=== PATIENT | male | born 1935 | race Caucasian/White ===

== ENCOUNTER 2021-10-25 15:05 | Observation (INO) ==
--- NOTE | 2021-10-25 16:02 | DR.URIAD ---
HPI Time Seen Time Seen by Provider: 10/25/21 15:39 PCP Primary Care Physician: JOE SANCHEZ Complaint Chief Complaint:: PT AND HIS FAMILY STATES FOR THE PAST FEW WEEKS HE HAS BEEN HAVING CCC , AND WHEEZING , AND HE HAS A RASH/BLEEDING TO HIS GROIN AREA , AND HIS NOSE HAS BEEN BLEEDING ,BR Self Treatment fo Chief Complaint: CREAM AND INJECTION FROM PHARMACY ,BR COVID-19 Coronavirus risk:travel/contact w/high risk person: No Has patient experienced Coronavirus symptoms: Yes Coronavirus symptoms experienced: Coughing Source History Provided: Patient and Family Member Mode of Arrival Mode of Arrival: Wheelchair Timing Onset of Chief Complaint: 09/28/21 PMH PMH Past Medical History: Yes Past Medical History: Diabetes, Dyslipidemia, Hypertension and Hypothyroidism Past Surgical History: No Family History History of Family Medical Conditions: No Social History Does patient currently use any type of tobacco product: No Have you used tobacco products in the last 12 months: No Type of Tobacco Use: None Does any household member use tobacco: No Alcohol Use: None Lives With: Alone Lives Where: Home Travel Risk Coronavirus risk:travel/contact w/high risk person: No Has patient experienced Coronavirus symptoms: Yes Coronavirus symptoms experienced: Coughing Infectious screening In the last 2 months have you had wt loss of >10#?: NO Have you had fever, night sweats or hemotysis?: No Have you traveled outside the country in the last 6 months?: No Isolation: Standard ROS Review of Systems Constitutional: No Symptoms Reported and See HPI Eyes: No Symptoms Reported and See HPI ENTM: No Symptoms Reported and See HPI Respiratoy: No Symptoms Reported and See HPI Cardiovascular: No Symptoms Reported and See HPI Gastrointestinal/Abdominal: No Symptoms Reported and See HPI Genitourinary: No Symptoms Reported and See HPI Neurological: No Symptoms Reported and See HPI Musculoskeletal: No Symptoms Reported and See HPI Integumentary: No Symptoms Reported and See HPI Hematologic/Lymphatic: No Symptoms Reported and See HPI Endocrine: No Symptoms Reported and See HPI Psychiatric: No Symptoms Reported and See HPI All Other Systems: Reviewed and Negative PE Vital Signs Vitals: Temperature 98.7 F Pulse Rate 88 Respiratory Rate 20 Blood Pressure 127/60 O2 Sat by Pulse Oximetry 93 General Limitations: No Limitations General Appearance: Alert and In No Apparent Distress Head Head Exam: Normal Inspection Eyes Eye exam: Normal Appearance ENT ENT Exam: Normal Exam External Ear Exam: Normal External Inspection TM/Canal Exam: Bilateral: Normal Nose Exam: Normal Nose Exam Nasal Speculum Exam: Bilateral: Normal Mouth Exam: Normal Inspection Throat Exam: Normal Inspection Neck Neck Exam: Normal Inspection Chest Chest Inspection: Normal Inspection Respiratory Respiratory Exam: Normal Lung Sounds Bilat Respiratory Exam: Bilateral: Clear to Auscultation Cardiovascular Cardiovascular Exam: Regular Rate and Normal Rhythm Abdominal Exam Abdominal Exam: Normal Inspection, Normal Bowel Sounds and Soft Extremeties Extremities Exam: Normal Inspection Back Back Exam: Normal Inspection Neurologic Neurological Exam: Alert and Oriented X3 Psychiatric Psychiatric Exam: Normal Affect and Normal Mood Skin Skin Exam: Warm, Dry, Intact and Normal Color MDM Additional Information Additional Information Obtained From: Old Records and Family Differential Diagnosis Differential Diagnosis: Pneumonia (BRONCHITIS, ECORIATION BOTH GROINS, NOSE BLEED.) and URI COURSE Treatment Treatment: SEE ORDERS. ROR Labs Reviewed Laboratory Results Reviewed?: Yes Result Diagrams: 10/25/21 16:05 10/25/21 16:05 Laboratory: 10/25/21 16:19 Groin Wound Gram Stain - Final WBC 3.2 X10^3/uL (3.6-10.0) L 10/25/21 16:05 RBC 2.59 X10^6/uL (4.7-6.0) L 10/25/21 16:05 Hgb 9.8 g/dL (13.5-18.0) L 10/25/21 16:05 Hct 28.5 % (42.0-54.0) L 10/25/21 16:05 MCV 110.4 fL (80.0-100.0) H 10/25/21 16:05 MCH 38.1 pg (27.0-34.0) H 10/25/21 16:05 MCHC 34.5 g/dL (33.0-35.0) 10/25/21 16:05 RDW 18.4 % (11.6-16.5) H 10/25/21 16:05 Plt Count 12 X10^3/uL (150.0-450.0) L* 10/25/21 16:05 Plt Count Comment Decreased (ADEQUATE) 10/25/21 16:05 MPV 8.7 fL (7.4-11.0) 10/25/21 16:05 Neut % (Auto) 74.8 % (42.0-75.0) 10/25/21 16:05 Lymph % (Auto) 22.4 % (21.0-51.0) 10/25/21 16:05 [place] % (Auto) 0.3 % (0.0-13.0) 10/25/21 16:05 Eos % (Auto) 2.4 % (0.9-2.9) 10/25/21 16:05 Baso % (Auto) 0.1 % (0.2-1.0) L 10/25/21 16:05 Neut # (Auto) 2.4 x10^3/uL (2.2-4.8) 10/25/21 16:05 Lymph # (Auto) 0.7 X10^3/uL (1.3-2.9) L 10/25/21 16:05 [place] # (Auto) 0 x10^3/uL (0.3-0.8) L 10/25/21 16:05 Eos # (Auto) 0.1 x10^3/uL (0.0-0.2) 10/25/21 16:05 Baso # (Auto) 0.0 X10^3/uL (0.0-0.1) 10/25/21 16:05 Absolute Nucleated RBC 0.2 /100WBC 10/25/21 16:05 Plt Morphology Comment Normal (NORMAL) 10/25/21 16:05 RBC Morphology Abnormal (NORMAL) 10/25/21 16:05 Anisocytosis Slight A 10/25/21 16:05 Macrocytosis 2+ A 10/25/21 16:05 Target Cells Present 10/25/21 16:05 Sodium 130 mmol/L (136-145) L 10/25/21 16:05 Corrected Sodium 130 mmol/L (136-145) L 10/25/21 16:05 Potassium 4.7 mmol/L (3.5-5.1) 10/25/21 16:05 Chloride 97 mmol/L (98-107) L 10/25/21 16:05 Carbon Dioxide 22.7 mmol/L (21-32) 10/25/21 16:05 BUN 38 mg/dL (7-18) H 10/25/21 16:05 Creatinine 1.18 mg/dL (0.70-1.30) 10/25/21 16:05 Est GFR (MDRD) Af Amer > 60 (>60) 10/25/21 16:05 Est GFR (MDRD) Non-Af > 60 (>60) 10/25/21 16:05 Glucose 114 mg/dL (65-99) H 10/25/21 16:05 Calcium 8.0 mg/dL (8.5-10.1) L 10/25/21 16:05 Corrected Calcium 9.1 mg/dL (8.5-10.1) 10/25/21 16:05 Total Bilirubin 0.90 mg/dL (0.2-1.0) 10/25/21 16:05 AST 112 Units/L (15-37) H 10/25/21 16:05 ALT 14 Units/L (12-78) 10/25/21 16:05 Alkaline Phosphatase 34 Units/L (46-116) L 10/25/21 16:05 Creatine Kinase 127 Units/L (39-308) 10/25/21 16:05 CK-MB (CK-2) 1.0 ng/mL (0-4.0) 10/25/21 16:05 CK/CKMB % Calc 0.8 % (<4) 10/25/21 16:05 Troponin I < 0.02 ng/mL (0-1.5) 10/25/21 16:05 Total Protein 6.8 g/dL (6.4-8.2) 10/25/21 16:05 Albumin 2.6 g/dL (3.4-5.0) L 10/25/21 16:05 Globulin 4.2 g/dL (2.5-4.5) 10/25/21 16:05 Albumin/Globulin Ratio 0.6 Ratio (1.1-2.1) L 10/25/21 16:05 Specimen Type Random urine 10/25/21 16:19 Urine Color Nicole (YELLOW) 10/25/21 16:19 Urine Appearance Clear (CLEAR) 10/25/21 16:19 Urine pH 5.0 (5.0 - 8.0) 10/25/21 16:19 Ur Specific [place] 1.020 (1.000-1.030) 10/25/21 16:19 Urine Protein 2+ (NEGATIVE) 10/25/21 16:19 Urine Glucose (UA) Negative (NEGATIVE) 10/25/21 16:19 Urine Ketones 1+ (NEGATIVE) 10/25/21 16:19 Urine Occult Blood 1+ (NEGATIVE) 10/25/21 16:19 Urine Nitrite Negative (NEGATIVE) 10/25/21 16:19 Urine Bilirubin 1+ (NEGATIVE) 10/25/21 16:19 Urine Urobilinogen 2+ (NORMAL) 10/25/21 16:19 Ur Leukocyte Esterase 1+ (NEGATIVE) 10/25/21 16:19 Urine RBC 0-2 /HPF (0-3) 10/25/21 16:19 Urine WBC 3-5 /HPF (0-5) 10/25/21 16:19 Ur Squamous Epith Cells Rare /HPF (NEGATIVE) 10/25/21 16:19 Urine Bacteria Trace /HPF (NEGATIVE) 10/25/21 16:19 Hyaline Casts Few /LPF (NEGATIVE) 10/25/21 16:19 Urine Mucus Many /HPF (NEGATIVE) 10/25/21 16:19 Ur Culture Indicated? No/not indicated 10/25/21 16:19 SARS CoV-2 RNA Rapid KELSY Negative (NEGATIVE) 10/25/21 16:32 Blood Type A POSITIVE 10/25/21 16:05 Antibody Screen Negative 10/25/21 16:05 XRAY XRAY Interpreted by: Radiologist (REPORT NOTED AND DISCUSSED WITH PATIENT AND SON.) and Self Opioid Opioid Risk Tool Age (Efren box if 16-45): No History of Preadolescent Sexual Abuse: No Total: 0 Total Score Risk Category: Low Risk Copyright: Ramiro HINSON predicting aberrant behaviors Diagnosis Discharge Problem: Pneumonia, Thrombocytopenia, Bleeding, Excoriation of groin Instructions Forms: Precautions for COVID19 [facility] Social Distancing
[2021-10-25 16:13] LABS: BASOPHILS % (AUTO) 0.1 % (0.2-1.0); EOSINOPHILS # (AUTO) 0.1 x10^3/uL (0.0-0.2); HEMATOCRIT 28.5 % (42.0-54.0); LYMPHOCYTES # (AUTO) 0.7 X10^3/uL (1.3-2.9); MONOCYTES # (AUTO) 0 x10^3/uL (0.3-0.8); MONOCYTES % (AUTO) 0.3 % (0.0-13.0); NEUTROPHILS # (AUTO) 2.4 x10^3/uL (2.2-4.8); WHITE BLOOD COUNT 3.2 X10^3/uL (3.6-10.0)
--- NOTE | 2021-10-25 16:19 | RAD ---
HISTORYCOUGHSTUDYCHEST, 1 VIEWCOMPARISONNone availableTECHNIQUEChest radiographic imaging, AP portable projection, 1 imageFINDINGSNo cardiomegaly.Airspace disease throughout the left lung; most significant in the left lower lobe.No pleural effusion.No pneumothorax.No acute osseous abnormality.Surgical clips in the right axilla.IMPRESSIONAirspace disease throughout the left lung; most significant in the left lower lobe. Findings are concerning for pneumonia. Recommend follow-up imaging after treatment, in 6-8 weeks, to ensure resolution.Electronically signed by: Dom Saunders (Oct 25, 2021 16:17:51)
[2021-10-25 16:25] LABS: EOSINOPHILS % (AUTO) 2.4 % (0.9-2.9); HEMOGLOBIN 9.8 g/dL (13.5-18.0); LYMPHOCYTES % (AUTO) 22.4 % (21.0-51.0); MEAN CORPUSCULAR HEMOGLOBIN 38.1 pg (27.0-34.0); MEAN CORPUSCULAR HGB CONC 34.5 g/dL (33.0-35.0); MEAN CORPUSCULAR VOLUME 110.4 fL (80.0-100.0); MEAN PLATELET VOLUME 8.7 fL (7.4-11.0); NEUTROPHILS % (AUTO) 74.8 % (42.0-75.0); RED BLOOD COUNT 2.59 X10^6/uL (4.7-6.0); RED CELL DISTRIBUTION WIDTH 18.4 % (11.6-16.5)
[2021-10-25 16:27] LABS: ALANINE AMINOTRANSFERASE 14 Units/L (12-78); ALBUMIN 2.6 g/dL (3.4-5.0); ALKALINE PHOSPHATASE 34 Units/L (46-116); ASPARTATE AMINO TRANSFERASE 112 Units/L (15-37); BLOOD UREA NITROGEN 38 mg/dL (7-18); CARBON DIOXIDE 22.7 mmol/L (21-32); CHLORIDE 97 mmol/L (98-107); COR CA(FOR HYPOALB) 9.1 mg/dL (8.5-10.1); COR NA(FOR HYPERGLY) 130 mmol/L (136-145); CREATININE 1.18 mg/dL (0.70-1.30); SODIUM 130 mmol/L (136-145); TOTAL PROTEIN 6.8 g/dL (6.4-8.2); eGFR NON BLACK RACES > 60 (>60)
[2021-10-25] MEDS ORDERED: NYSTATIN OINT ONE (16:29)
[2021-10-25 16:34] LABS: CKMB % 0.8 % (<4); CREATINE KINASE 127 Units/L (39-308); TROPONIN I < 0.02 ng/mL (0-1.5)
[2021-10-25 16:39] LABS: PLATELET COUNT 12 X10^3/uL (150.0-450.0)
[2021-10-25 16:41] LABS: PLATELET MORPHOLOGY COMMENT NORMAL (NORMAL)
[2021-10-25 16:42] LABS: ANISOCYTOSIS SLIGHT; TARGET CELLS PRESENT
[2021-10-25 17:17] LABS: BILIRUBIN,URINE 1+ (NEGATIVE); BLOOD/HEMOGLOBIN,URINE 1+ (NEGATIVE); GLUCOSE, URINE NEGATIVE (NEGATIVE); KETONES,URINE 1+ (NEGATIVE); LEUKOCYTE ESTERASE ,URINE 1+ (NEGATIVE); NITRITES,URINE NEGATIVE (NEGATIVE); PROTEIN,URINE 2+ (NEGATIVE); UROBILINOGEN,URINE 2+ (NORMAL)
[2021-10-25 17:18] LABS: APPEARANCE,URINE CLEAR (CLEAR); COLOR,URINE AMBER (YELLOW)
[2021-10-25 17:27] LABS: BACTERIA,URINE TRACE /HPF (NEGATIVE); HYALINE CASTS, URINE FEW /LPF (NEGATIVE); MUCUS,URINE MANY /HPF (NEGATIVE); RBC,URINE 0-2 /HPF (0-3); SQUAMOUS EPITHELIAL CELL,UR RARE /HPF (NEGATIVE)
[2021-10-25] MEDS ORDERED: NS 1,000 ML IV 1,000 ML ONE (18:01)
[2021-10-25] MEDS: NS 1,000 ML IV 1,000 ML IV SCH (18:05)
[2021-10-25 19:43] LABS: WHITE BLOOD COUNT 2.6 X10^3/uL (3.6-10.0)
[2021-10-25 19:47] LABS: BASOPHILS % (AUTO) 0.1 % (0.2-1.0); EOSINOPHILS # (AUTO) 0.1 x10^3/uL (0.0-0.2); EOSINOPHILS % (AUTO) 2.4 % (0.9-2.9); HEMATOCRIT 26.7 % (42.0-54.0); HEMOGLOBIN 9.2 g/dL (13.5-18.0); LYMPHOCYTES # (AUTO) 0.6 X10^3/uL (1.3-2.9); LYMPHOCYTES % (AUTO) 21.3 % (21.0-51.0); MEAN CORPUSCULAR HEMOGLOBIN 37.7 pg (27.0-34.0); MEAN CORPUSCULAR HGB CONC 34.5 g/dL (33.0-35.0); MEAN CORPUSCULAR VOLUME 109.4 fL (80.0-100.0); MEAN PLATELET VOLUME 8.4 fL (7.4-11.0); MONOCYTES # (AUTO) 0 x10^3/uL (0.3-0.8); MONOCYTES % (AUTO) 0.5 % (0.0-13.0); NEUTROPHILS % (AUTO) 75.7 % (42.0-75.0); RED BLOOD COUNT 2.44 X10^6/uL (4.7-6.0); RED CELL DISTRIBUTION WIDTH 18.2 % (11.6-16.5)
[2021-10-25 19:53] LABS: ALANINE AMINOTRANSFERASE 19 Units/L (12-78); ALBUMIN 2.4 g/dL (3.4-5.0); ALKALINE PHOSPHATASE 31 Units/L (46-116); ASPARTATE AMINO TRANSFERASE 103 Units/L (15-37); BLOOD UREA NITROGEN 39 mg/dL (7-18); CALCIUM 7.6 mg/dL (8.5-10.1); CARBON DIOXIDE 22.8 mmol/L (21-32); CHLORIDE 98 mmol/L (98-107); COR CA(FOR HYPOALB) 8.9 mg/dL (8.5-10.1); SODIUM 129 mmol/L (136-145); TOTAL PROTEIN 6.3 g/dL (6.4-8.2); eGFR NON BLACK RACES > 60 (>60)
[2021-10-25 20:00] LABS: PLATELET COUNT 9 X10^3/uL (150.0-450.0)
[2021-10-25 20:13] LABS: ANISOCYTOSIS SLIGHT; PLATELET MORPHOLOGY COMMENT NORMAL (NORMAL)
[2021-10-25] MEDS: ROBITUSSIN DM PO SCH (21:40)
[2021-10-25] MEDS: LEVAQUIN PREMIX IV 750 MG 750 MG/150 ML BAG IV SCH (21:45)
[2021-10-26 02:03] VITALS: BMI 31.7
[2021-10-26 02:43] LABS: BASOPHILS % (AUTO) 1.6 % (0.2-1.0); EOSINOPHILS # (AUTO) 0.1 x10^3/uL (0.0-0.2); EOSINOPHILS % (AUTO) 4.1 % (0.9-2.9); HEMATOCRIT 23.9 % (42.0-54.0); HEMOGLOBIN 8.3 g/dL (13.5-18.0); LYMPHOCYTES # (AUTO) 0.5 X10^3/uL (1.3-2.9); LYMPHOCYTES % (AUTO) 24.4 % (21.0-51.0); MEAN CORPUSCULAR HEMOGLOBIN 37.8 pg (27.0-34.0); MEAN CORPUSCULAR HGB CONC 34.7 g/dL (33.0-35.0); MEAN CORPUSCULAR VOLUME 108.8 fL (80.0-100.0); MEAN PLATELET VOLUME 8.5 fL (7.4-11.0); MONOCYTES # (AUTO) 0 x10^3/uL (0.3-0.8); MONOCYTES % (AUTO) 0.9 % (0.0-13.0); NEUTROPHILS # (AUTO) 1.4 x10^3/uL (2.2-4.8); PLATELET COUNT 41 X10^3/uL (150.0-450.0); RED CELL DISTRIBUTION WIDTH 18.1 % (11.6-16.5); WHITE BLOOD COUNT 2.1 X10^3/uL (3.6-10.0)
[2021-10-26 03:07] LABS: PLATELET MORPHOLOGY COMMENT NORMAL (NORMAL)
[2021-10-26 03:08] LABS: ANISOCYTOSIS SLIGHT; TARGET CELLS FEW
[2021-10-26] MEDS: PROVENTIL NEB TX 0.083% 2.5MG/ 3ML NEB PRN ×2 (05:50→15:51)
[2021-10-26 06:28] LABS: BASOPHILS % (AUTO) 0.1 % (0.2-1.0); EOSINOPHILS # (AUTO) 0.1 x10^3/uL (0.0-0.2); EOSINOPHILS % (AUTO) 2.7 % (0.9-2.9); HEMATOCRIT 24.9 % (42.0-54.0); HEMOGLOBIN 8.6 g/dL (13.5-18.0); LYMPHOCYTES # (AUTO) 1.1 X10^3/uL (1.3-2.9); LYMPHOCYTES % (AUTO) 43.1 % (21.0-51.0); MEAN CORPUSCULAR HEMOGLOBIN 37.7 pg (27.0-34.0); MEAN CORPUSCULAR HGB CONC 34.6 g/dL (33.0-35.0); MEAN CORPUSCULAR VOLUME 109.1 fL (80.0-100.0); MEAN PLATELET VOLUME 8.7 fL (7.4-11.0); MONOCYTES # (AUTO) 0 x10^3/uL (0.3-0.8); MONOCYTES % (AUTO) 0.6 % (0.0-13.0); NEUTROPHILS # (AUTO) 1.3 x10^3/uL (2.2-4.8); NEUTROPHILS % (AUTO) 53.5 % (42.0-75.0); PLATELET COUNT 35 X10^3/uL (150.0-450.0); RED BLOOD COUNT 2.28 X10^6/uL (4.7-6.0); RED CELL DISTRIBUTION WIDTH 17.8 % (11.6-16.5); WHITE BLOOD COUNT 2.5 X10^3/uL (3.6-10.0)
[2021-10-26 06:52] LABS: ALANINE AMINOTRANSFERASE 28 Units/L (12-78); ALBUMIN 2.2 g/dL (3.4-5.0); ALKALINE PHOSPHATASE 29 Units/L (46-116); ASPARTATE AMINO TRANSFERASE 97 Units/L (15-37); BLOOD UREA NITROGEN 33 mg/dL (7-18); CALCIUM 7.7 mg/dL (8.5-10.1); CHLORIDE 101 mmol/L (98-107); COR CA(FOR HYPOALB) 9.1 mg/dL (8.5-10.1); CREATININE 0.97 mg/dL (0.70-1.30); SODIUM 132 mmol/L (136-145); TOTAL PROTEIN 5.9 g/dL (6.4-8.2); eGFR NON BLACK RACES > 60 (>60)
[2021-10-26 07:13] LABS: METAMYELOCYTES % 2
[2021-10-26 07:14] LABS: ANISOCYTOSIS SLIGHT; PLATELET MORPHOLOGY COMMENT NORMAL (NORMAL); TARGET CELLS FEW
[2021-10-26] MEDS: VSL#3 PO SCH (08:31)
[2021-10-26] MEDS: ROBITUSSIN DM PO SCH ×4 (08:31→21:20)
[2021-10-26] MEDS: LEVAQUIN PREMIX IV 750 MG 750 MG/150 ML BAG IV SCH (08:31)
[2021-10-26] MEDS ORDERED: SOLU-Medrol 125 MG VIAL IVP ONE (16:32)
[2021-10-26] MEDS ORDERED: SOLU-Medrol 125 MG VIAL ONE (16:38)
[2021-10-26] MEDS: PROVENTIL NEB TX 0.083% 2.5MG/ 3ML NEB SCH (18:00)
--- NOTE | 2021-10-26 18:46 | DR.H&P ---
H&P History & Physical for Day of: H&P Date: 10/25/21 Chief Complaint Chief Complaint: CCC and wheezing. Rash and bleeding in his groin area. Large number of nose bleeds. Allergies Allergies Allergy/AdvReac Type Severity Reaction Status Date / Time No Known Drug Allergies Allergy Verified 10/25/21 17:49 History of Present Illness History of Present Illness: This is an 86 yo wm who presented to ED with a 2 week history of CCC and wheezing. Bleeding from a rash in his groin and also having a large number of nose bleeds. Work-up in the ED found he had Pneumonia and he was profoundly thrombocytopenic with a platelet count of 12. He was also found to be hyponatremic with a sodium level of 130. He has a macrocytic anemia as well. Past Medical History Past Medical History: Angina, Diabetes, Dyslipidemia, Hypertension and Hypothyroidism Past Surgical History Surgical History: Ortho Surgery Family History Family Medical History: Diabetes Mellitus and Hypertension Social History Does patient currently use any type of tobacco product: No Have you used tobacco products in the last 12 months: No Type of Tobacco Use: None Does any household member use tobacco: No Alcohol Use: None Drug Use: None Medications Home Medications: No Known Drug Allergies Allergy (Verified 10/25/21 17:49) CONTINUE taking the following medications allopurinol 300 mg PO DAILY 10/25/21 [History] amlodipine 10 mg PO DAILY 10/25/21 [History] fenofibrate 160 mg PO DAILY 10/25/21 [History] folic acid 1 mg PO DAILY 10/25/21 [History] levothyroxine 100 mcg PO DAILY 10/25/21 [History] metformin 850 mg PO BID 10/25/21 [History] pantoprazole 40 mg PO DAILY 10/25/21 [History] spironolactone 25 mg PO BID 10/25/21 [History] Labs Result Diagrams: 10/26/21 06:13 10/26/21 06:13 Labs: 10/25/21 16:19 Groin Wound Gram Stain - Final 10/25/21 16:19 Groin Wound Culture - Preliminary 10/25/21 22:55 Sputum - Expectorated Sputum - Final Laboratory WBC 2.5 X10^3/uL (3.6-10.0) L 10/26/21 06:13 RBC 2.28 X10^6/uL (4.7-6.0) L 10/26/21 06:13 Hgb 8.6 g/dL (13.5-18.0) L 10/26/21 06:13 Hct 24.9 % (42.0-54.0) L 10/26/21 06:13 MCV 109.1 fL (80.0-100.0) H 10/26/21 06:13 MCH 37.7 pg (27.0-34.0) H 10/26/21 06:13 MCHC 34.6 g/dL (33.0-35.0) 10/26/21 06:13 RDW 17.8 % (11.6-16.5) H 10/26/21 06:13 Plt Count 35 X10^3/uL (150.0-450.0) L 10/26/21 06:13 Plt Count Comment Decreased (ADEQUATE) 10/26/21 06:13 MPV 8.7 fL (7.4-11.0) 10/26/21 06:13 Neut % (Auto) 53.5 % (42.0-75.0) 10/26/21 06:13 Lymph % (Auto) 43.1 % (21.0-51.0) 10/26/21 06:13 [place] % (Auto) 0.6 % (0.0-13.0) 10/26/21 06:13 Eos % (Auto) 2.7 % (0.9-2.9) 10/26/21 06:13 Baso % (Auto) 0.1 % (0.2-1.0) L 10/26/21 06:13 Neut # (Auto) 1.3 x10^3/uL (2.2-4.8) L 10/26/21 06:13 Lymph # (Auto) 1.1 X10^3/uL (1.3-2.9) L 10/26/21 06:13 [place] # (Auto) 0 x10^3/uL (0.3-0.8) L 10/26/21 06:13 Eos # (Auto) 0.1 x10^3/uL (0.0-0.2) 10/26/21 06:13 Baso # (Auto) 0.0 X10^3/uL (0.0-0.1) 10/26/21 06:13 Absolute Nucleated RBC 0.3 /100WBC 10/26/21 06:13 Total Counted 100 10/26/21 06:13 Neutrophils % (Manual) 48 % (39-76) 10/26/21 06:13 Lymphocytes % (Manual) 48 % (13-43) H 10/26/21 06:13 Monocytes % (Manual) 0 % (4-9) L 10/25/21 19:33 Eosinophils % (Manual) 2 % (0-6) 10/26/21 06:13 Metamyelocytes % 2 10/26/21 06:13 Plt Morphology Comment Normal (NORMAL) 10/26/21 06:13 RBC Morphology Abnormal (NORMAL) 10/26/21 06:13 Anisocytosis Slight A 10/26/21 06:13 Macrocytosis 1+ A 10/26/21 06:13 Target Cells Few 10/26/21 06:13 PT 13.9 SECONDS (11.8-14.3) 10/26/21 06:13 INR Target Range - 10/26/21 06:13 INR 1.12 (0.8-1.3) 10/26/21 06:13 APTT 36.7 SECONDS (22.9-36.5) H 10/26/21 06:13 PTT Comment - 10/26/21 06:13 Sodium 132 mmol/L (136-145) L 10/26/21 06:13 Corrected Sodium TNP 10/26/21 06:13 Potassium 4.0 mmol/L (3.5-5.1) 10/26/21 06:13 Chloride 101 mmol/L (98-107) 10/26/21 06:13 Carbon Dioxide 21.0 mmol/L (21-32) 10/26/21 06:13 BUN 33 mg/dL (7-18) H 10/26/21 06:13 Creatinine 0.97 mg/dL (0.70-1.30) 10/26/21 06:13 Est GFR (MDRD) Af Amer > 60 (>60) 10/26/21 06:13 Est GFR (MDRD) Non-Af > 60 (>60) 10/26/21 06:13 Glucose 96 mg/dL (65-99) 10/26/21 06:13 POC Glucose (mg/dL) 97 mg/dL (65-99) 10/26/21 16:14 Calcium 7.7 mg/dL (8.5-10.1) L 10/26/21 06:13 Corrected Calcium 9.1 mg/dL (8.5-10.1) 10/26/21 06:13 Magnesium 2.0 mg/dL (1.7-2.9) 10/26/21 06:13 Total Bilirubin 0.90 mg/dL (0.2-1.0) 10/26/21 06:13 AST 97 Units/L (15-37) H 10/26/21 06:13 ALT 28 Units/L (12-78) 10/26/21 06:13 Alkaline Phosphatase 29 Units/L (46-116) L 10/26/21 06:13 Creatine Kinase 127 Units/L (39-308) 10/25/21 16:05 CK-MB (CK-2) 1.0 ng/mL (0-4.0) 10/25/21 16:05 CK/CKMB % Calc 0.8 % (<4) 10/25/21 16:05 Troponin I < 0.02 ng/mL (0-1.5) 10/25/21 16:05 Total Protein 5.9 g/dL (6.4-8.2) L 10/26/21 06:13 Albumin 2.2 g/dL (3.4-5.0) L 10/26/21 06:13 Globulin 3.7 g/dL (2.5-4.5) 10/26/21 06:13 Albumin/Globulin Ratio 0.6 Ratio (1.1-2.1) L 10/26/21 06:13 Specimen Type Random urine 10/25/21 16:19 Urine Color Nicole (YELLOW) 10/25/21 16:19 Urine Appearance Clear (CLEAR) 10/25/21 16:19 Urine pH 5.0 (5.0 - 8.0) 10/25/21 16:19 Ur Specific [place] 1.020 (1.000-1.030) 10/25/21 16:19 Urine Protein 2+ (NEGATIVE) 10/25/21 16:19 Urine Glucose (UA) Negative (NEGATIVE) 10/25/21 16:19 Urine Ketones 1+ (NEGATIVE) 10/25/21 16:19 Urine Occult Blood 1+ (NEGATIVE) 10/25/21 16:19 Urine Nitrite Negative (NEGATIVE) 10/25/21 16:19 Urine Bilirubin 1+ (NEGATIVE) 10/25/21 16:19 Urine Urobilinogen 2+ (NORMAL) 10/25/21 16:19 Ur Leukocyte Esterase 1+ (NEGATIVE) 10/25/21 16:19 Urine RBC 0-2 /HPF (0-3) 10/25/21 16:19 Urine WBC 3-5 /HPF (0-5) 10/25/21 16:19 Ur Squamous Epith Cells Rare /HPF (NEGATIVE) 10/25/21 16:19 Urine Bacteria Trace /HPF (NEGATIVE) 10/25/21 16:19 Hyaline Casts Few /LPF (NEGATIVE) 10/25/21 16:19 Urine Mucus Many /HPF (NEGATIVE) 10/25/21 16:19 Ur Culture Indicated? No/not indicated 10/25/21 16:19 SARS CoV-2 RNA Rapid KELSY Negative (NEGATIVE) 10/25/21 16:32 Blood Type A POSITIVE 10/25/21 16:05 Antibody Screen Negative 10/25/21 16:05 Review of Systems Constitutional: Weakness and Malaise Eyes: No Symptoms Reported ENT: No Symptoms Reported Respiratory: Cough, SOB with Excertion and Wheezing Cardiovascular: No Symptoms Reported Genitourinary: No Symptoms Reported Musculoskeletal: No Symptoms Reported Skin: Rash Neurological: Weakness Physical Exam Vital Signs: Temperature 99.4 F Pulse Rate [Right Brachial] 128 Pulse Rate 91 Respiratory Rate 22 Blood Pressure [Right Arm] 118/56 Blood Pressure [Left Arm] 117/59 Blood Pressure 127/60 O2 Sat by Pulse Oximetry 91 Oriented: Normal Eyes: Normal Ear: Normal Nose: Normal Throat: Normal Respiratory: LLL Rhonchi Cardiovascular: Normal : Normal Auscultation: Bowel Sounds: Normal Palpation: Normal Skin: Rash Musculoskeletal: Normal Psychiatric: Normal Mood Description: Calm Affect: Normal Speech Pattern: Clear Assessment/Plan (1) Pneumonia: Status: Acute Plan: Pneumonia protocol. (2) Thrombocytopenia: Status: Acute Plan: Transfuse platelets as needed. (3) Bleeding: Status: Acute Plan: Monitor platelet levels. (4) Excoriation of groin: Status: Acute Plan: F/U with wound cultures. IV abx. (5) DM2 (diabetes mellitus, type 2): Status: Acute Plan: Cover with Sliding scale. (6) HTN (hypertension): Status: Acute Plan: Resume home BP meds when needed. (7) Hypothyroidism: Status: Acute Plan: Resume Levothyroxine 100mcg daily. (8) Dyslipidemia: Status: Acute (9) Macrocytic anemia: Status: Acute Plan: Will check anemia profile. Review H&P Reviewed: Yes Patient was examined?: Yes
--- NOTE | 2021-10-26 18:52 | PCM.PROG ---
Progress Note Progress Note for Day of Date of Exam: 10/26/21 Subjective Subjective: Patient is alert and awake this am. No new complaints this am. Platelet level is up to 35. Na is 132 now. Cr has normalized to 0.97 but BUN is still elevated at 33. With the elevated BUN and low platelet levels their could have been some GI blood loss. He remains leukopenic with a WBC count of 2.5. Past Medical Family Social History Past Med/Fam/Surg Hx: No changes since H&P Allergies: Allergies No Known Drug Allergies Allergy (Verified 10/25/21 17:49) Review of Systems ROS: No change since H&P Vital Signs and I&O's Vital Signs: Temperature 99.4 F Pulse Rate [Right Brachial] 128 Pulse Rate 88 Respiratory Rate 22 Blood Pressure [Right Arm] 118/56 Blood Pressure [Left Arm] 117/59 Blood Pressure 127/60 O2 Sat by Pulse Oximetry 94 Intake and Output: Intake & Output 10/24/21 10/25/21 10/26/21 10/27/21 11:59 11:59 11:59 11:59 Intake Total 1116 / 1116 1120 / 1120 Output Total 451 / 451 Balance 665 / 665 1120 / 1120 Physical Exam Oriented: Normal Eyes: Normal Ear: Normal Nose: Normal Throat: Normal Respiratory: Left and Rhonchi Cardiovascular: Normal : Normal Auscultation: Bowel Sounds: Normal Tenderness: Normal Skin: Rash Musculoskeletal: Normal Psychiatric: Normal Mood Description: Calm Affect: Normal Speech Pattern: Clear Laboratory and Diagnostics Result Diagrams: 10/26/21 06:13 10/26/21 06:13 Labs: 10/25/21 16:19 Groin Wound Gram Stain - Final 10/25/21 16:19 Groin Wound Culture - Preliminary 10/25/21 22:55 Sputum - Expectorated Sputum - Final Laboratory WBC 2.5 X10^3/uL (3.6-10.0) L 10/26/21 06:13 RBC 2.28 X10^6/uL (4.7-6.0) L 10/26/21 06:13 Hgb 8.6 g/dL (13.5-18.0) L 10/26/21 06:13 Hct 24.9 % (42.0-54.0) L 10/26/21 06:13 MCV 109.1 fL (80.0-100.0) H 10/26/21 06:13 MCH 37.7 pg (27.0-34.0) H 10/26/21 06:13 MCHC 34.6 g/dL (33.0-35.0) 10/26/21 06:13 RDW 17.8 % (11.6-16.5) H 10/26/21 06:13 Plt Count 35 X10^3/uL (150.0-450.0) L 10/26/21 06:13 Plt Count Comment Decreased (ADEQUATE) 10/26/21 06:13 MPV 8.7 fL (7.4-11.0) 10/26/21 06:13 Neut % (Auto) 53.5 % (42.0-75.0) 10/26/21 06:13 Lymph % (Auto) 43.1 % (21.0-51.0) 10/26/21 06:13 [place] % (Auto) 0.6 % (0.0-13.0) 10/26/21 06:13 Eos % (Auto) 2.7 % (0.9-2.9) 10/26/21 06:13 Baso % (Auto) 0.1 % (0.2-1.0) L 10/26/21 06:13 Neut # (Auto) 1.3 x10^3/uL (2.2-4.8) L 10/26/21 06:13 Lymph # (Auto) 1.1 X10^3/uL (1.3-2.9) L 10/26/21 06:13 [place] # (Auto) 0 x10^3/uL (0.3-0.8) L 10/26/21 06:13 Eos # (Auto) 0.1 x10^3/uL (0.0-0.2) 10/26/21 06:13 Baso # (Auto) 0.0 X10^3/uL (0.0-0.1) 10/26/21 06:13 Absolute Nucleated RBC 0.3 /100WBC 10/26/21 06:13 Total Counted 100 10/26/21 06:13 Neutrophils % (Manual) 48 % (39-76) 10/26/21 06:13 Lymphocytes % (Manual) 48 % (13-43) H 10/26/21 06:13 Monocytes % (Manual) 0 % (4-9) L 10/25/21 19:33 Eosinophils % (Manual) 2 % (0-6) 10/26/21 06:13 Metamyelocytes % 2 10/26/21 06:13 Plt Morphology Comment Normal (NORMAL) 10/26/21 06:13 RBC Morphology Abnormal (NORMAL) 10/26/21 06:13 Anisocytosis Slight A 10/26/21 06:13 Macrocytosis 1+ A 10/26/21 06:13 Target Cells Few 10/26/21 06:13 PT 13.9 SECONDS (11.8-14.3) 10/26/21 06:13 INR Target Range - 10/26/21 06:13 INR 1.12 (0.8-1.3) 10/26/21 06:13 APTT 36.7 SECONDS (22.9-36.5) H 10/26/21 06:13 PTT Comment - 10/26/21 06:13 Sodium 132 mmol/L (136-145) L 10/26/21 06:13 Corrected Sodium TNP 10/26/21 06:13 Potassium 4.0 mmol/L (3.5-5.1) 10/26/21 06:13 Chloride 101 mmol/L (98-107) 10/26/21 06:13 Carbon Dioxide 21.0 mmol/L (21-32) 10/26/21 06:13 BUN 33 mg/dL (7-18) H 10/26/21 06:13 Creatinine 0.97 mg/dL (0.70-1.30) 10/26/21 06:13 Est GFR (MDRD) Af Amer > 60 (>60) 10/26/21 06:13 Est GFR (MDRD) Non-Af > 60 (>60) 10/26/21 06:13 Glucose 96 mg/dL (65-99) 10/26/21 06:13 POC Glucose (mg/dL) 97 mg/dL (65-99) 10/26/21 16:14 Calcium 7.7 mg/dL (8.5-10.1) L 10/26/21 06:13 Corrected Calcium 9.1 mg/dL (8.5-10.1) 10/26/21 06:13 Magnesium 2.0 mg/dL (1.7-2.9) 10/26/21 06:13 Total Bilirubin 0.90 mg/dL (0.2-1.0) 10/26/21 06:13 AST 97 Units/L (15-37) H 10/26/21 06:13 ALT 28 Units/L (12-78) 10/26/21 06:13 Alkaline Phosphatase 29 Units/L (46-116) L 10/26/21 06:13 Creatine Kinase 127 Units/L (39-308) 10/25/21 16:05 CK-MB (CK-2) 1.0 ng/mL (0-4.0) 10/25/21 16:05 CK/CKMB % Calc 0.8 % (<4) 10/25/21 16:05 Troponin I < 0.02 ng/mL (0-1.5) 10/25/21 16:05 Total Protein 5.9 g/dL (6.4-8.2) L 10/26/21 06:13 Albumin 2.2 g/dL (3.4-5.0) L 10/26/21 06:13 Globulin 3.7 g/dL (2.5-4.5) 10/26/21 06:13 Albumin/Globulin Ratio 0.6 Ratio (1.1-2.1) L 10/26/21 06:13 Specimen Type Random urine 10/25/21 16:19 Urine Color Nicole (YELLOW) 10/25/21 16:19 Urine Appearance Clear (CLEAR) 10/25/21 16:19 Urine pH 5.0 (5.0 - 8.0) 10/25/21 16:19 Ur Specific [place] 1.020 (1.000-1.030) 10/25/21 16:19 Urine Protein 2+ (NEGATIVE) 10/25/21 16:19 Urine Glucose (UA) Negative (NEGATIVE) 10/25/21 16:19 Urine Ketones 1+ (NEGATIVE) 10/25/21 16:19 Urine Occult Blood 1+ (NEGATIVE) 10/25/21 16:19 Urine Nitrite Negative (NEGATIVE) 10/25/21 16:19 Urine Bilirubin 1+ (NEGATIVE) 10/25/21 16:19 Urine Urobilinogen 2+ (NORMAL) 12/12/21 16:19 Ur Leukocyte Esterase 1+ (NEGATIVE) 10/25/21 16:19 Urine RBC 0-2 /HPF (0-3) 10/25/21 16:19 Urine WBC 3-5 /HPF (0-5) 10/25/21 16:19 Ur Squamous Epith Cells Rare /HPF (NEGATIVE) 10/25/21 16:19 Urine Bacteria Trace /HPF (NEGATIVE) 10/25/21 16:19 Hyaline Casts Few /LPF (NEGATIVE) 10/25/21 16:19 Urine Mucus Many /HPF (NEGATIVE) 10/25/21 16:19 Ur Culture Indicated? No/not indicated 10/25/21 16:19 SARS CoV-2 RNA Rapid KELSY Negative (NEGATIVE) 10/25/21 16:32 Blood Type A POSITIVE 10/25/21 16:05 Antibody Screen Negative 10/25/21 16:05 Radiology Reviewed: Yes Plan (1) Pneumonia: Status: Acute Plan: Pneumonia protocol. (2) Thrombocytopenia: Status: Acute Plan: Transfuse platelets as needed. (3) Bleeding: Status: Acute Plan: Monitor platelet levels. (4) Excoriation of groin: Status: Acute Plan: F/U with wound cultures. IV abx. (5) DM2 (diabetes mellitus, type 2): Status: Acute Plan: Cover with Sliding scale. (6) HTN (hypertension): Status: Acute Narrative Support Text: BP stable at this time. Plan: Resume home BP meds when needed. (7) Hypothyroidism: Status: Acute Plan: Resume Levothyroxine 100mcg daily. (8) Dyslipidemia: Status: Acute (9) Macrocytic anemia: Status: Acute Plan: F/U with anemia profile.
[2021-10-26] MEDS: MAXIPIME VIAL 1 GRAM 1 G in NS 50 ML IV + SPIKE MINIBAG* 50 ML IV SCH ×2 (19:23→23:31)
[2021-10-26] MEDS: NS 1,000 ML IV 1,000 ML IV SCH (20:07)
[2021-10-26] MEDS: SOLU-Medrol 40 MG VIAL IVP SCH (21:20)
[2021-10-26 21:30] LABS: BASOPHILS % (AUTO) 0.1 % (0.2-1.0); LYMPHOCYTES # (AUTO) 0.3 X10^3/uL (1.3-2.9); MONOCYTES # (AUTO) 0 x10^3/uL (0.3-0.8); MONOCYTES % (AUTO) 0.4 % (0.0-13.0); NEUTROPHILS # (AUTO) 0.4 x10^3/uL (2.2-4.8)
[2021-10-26 21:31] LABS: EOSINOPHILS % (AUTO) 4.6 % (0.9-2.9); HEMATOCRIT 23.1 % (42.0-54.0); LYMPHOCYTES % (AUTO) 36.9 % (21.0-51.0); MEAN CORPUSCULAR HEMOGLOBIN 37.6 pg (27.0-34.0); MEAN CORPUSCULAR HGB CONC 34.6 g/dL (33.0-35.0); MEAN CORPUSCULAR VOLUME 108.6 fL (80.0-100.0); MEAN PLATELET VOLUME 8.7 fL (7.4-11.0); PLATELET COUNT 27 X10^3/uL (150.0-450.0); RED BLOOD COUNT 2.12 X10^6/uL (4.7-6.0); RED CELL DISTRIBUTION WIDTH 17.8 % (11.6-16.5)
[2021-10-26 21:35] LABS: WHITE BLOOD COUNT 0.8 X10^3/uL (3.6-10.0)
[2021-10-26 22:08] LABS: PLATELET MORPHOLOGY COMMENT NORMAL (NORMAL)
[2021-10-27 01:08] LABS: BILIRUBIN,URINE NEGATIVE (NEGATIVE); BLOOD/HEMOGLOBIN,URINE 2+ (NEGATIVE); GLUCOSE, URINE NEGATIVE (NEGATIVE); KETONES,URINE NEGATIVE (NEGATIVE); LEUKOCYTE ESTERASE ,URINE NEGATIVE (NEGATIVE); NITRITES,URINE NEGATIVE (NEGATIVE); PH,URINE 6.5 (5.0 - 8.0); PROTEIN,URINE 2+ (NEGATIVE); UROBILINOGEN,URINE 1+ (NORMAL)
[2021-10-27] MEDS ORDERED: DUONEB 0.5 MG/3 MG (3 mL) NEB ONE (01:08)
[2021-10-27] MEDS: PROVENTIL NEB TX 0.083% 2.5MG/ 3ML NEB SCH ×2 (01:15→05:52)
[2021-10-27 01:35] LABS: APPEARANCE,URINE CLEAR (CLEAR); BACTERIA,URINE TRACE /HPF (NEGATIVE); COLOR,URINE DARK YELLOW (YELLOW); RENAL EPITHELIAL CELLS,URINE RARE /HPF (NEGATIVE); SQUAMOUS EPITHELIAL CELL,UR FEW /HPF (NEGATIVE)
[2021-10-27] MEDS: DUONEB 0.5 MG/3 MG (3 mL) NEB SCH ×2 (01:35→06:14)
[2021-10-27 04:07] LABS: LYMPHOCYTES # (AUTO) 0.1 X10^3/uL (1.3-2.9); MONOCYTES # (AUTO) 0 x10^3/uL (0.3-0.8); PLATELET COUNT 52 X10^3/uL (150.0-450.0)
[2021-10-27 04:12] LABS: BASOPHILS % (AUTO) 0.4 % (0.2-1.0); EOSINOPHILS % (AUTO) 0.4 % (0.9-2.9); HEMOGLOBIN 7.6 g/dL (13.5-18.0); LYMPHOCYTES % (AUTO) 24.4 % (21.0-51.0); MEAN CORPUSCULAR HEMOGLOBIN 37.1 pg (27.0-34.0); MEAN CORPUSCULAR HGB CONC 34.4 g/dL (33.0-35.0); MEAN CORPUSCULAR VOLUME 107.7 fL (80.0-100.0); MEAN PLATELET VOLUME 8.4 fL (7.4-11.0); MONOCYTES % (AUTO) 0.6 % (0.0-13.0); NEUTROPHILS # (AUTO) 0.4 x10^3/uL (2.2-4.8); NEUTROPHILS % (AUTO) 74.2 % (42.0-75.0); RED BLOOD COUNT 2.04 X10^6/uL (4.7-6.0); RED CELL DISTRIBUTION WIDTH 17.3 % (11.6-16.5)
[2021-10-27 04:14] LABS: WHITE BLOOD COUNT 0.5 X10^3/uL (3.6-10.0)
[2021-10-27 04:18] LABS: ALANINE AMINOTRANSFERASE 28 Units/L (12-78); ALBUMIN 2.2 g/dL (3.4-5.0); ALKALINE PHOSPHATASE 31 Units/L (46-116); ASPARTATE AMINO TRANSFERASE 90 Units/L (15-37); BLOOD UREA NITROGEN 26 mg/dL (7-18); CALCIUM 7.6 mg/dL (8.5-10.1); CARBON DIOXIDE 22.6 mmol/L (21-32); CHLORIDE 101 mmol/L (98-107); COR NA(FOR HYPERGLY) 134 mmol/L (136-145); CREATININE 0.88 mg/dL (0.70-1.30); SODIUM 133 mmol/L (136-145); TOTAL PROTEIN 5.7 g/dL (6.4-8.2); eGFR NON BLACK RACES > 60 (>60)
[2021-10-27 04:39] LABS: ANISOCYTOSIS SLIGHT; PLATELET MORPHOLOGY COMMENT NORMAL (NORMAL); TARGET CELLS FEW
[2021-10-27] MEDS: NS 1,000 ML IV 1,000 ML IV SCH ×2 (05:44→17:16)
[2021-10-27] MEDS ORDERED: MAXIPIME VIAL 1 GRAM 1 G in NS 50 ML IV + SPIKE MINIBAG* 50 ML IV SCH (06:00)
[2021-10-27] MEDS: SYNTHROID 100 mcg TAB PO SCH (08:30)
[2021-10-27] MEDS: ROBITUSSIN DM PO SCH ×4 (08:30→21:25)
[2021-10-27] MEDS: VSL#3 PO SCH (08:30)
[2021-10-27] MEDS: PROTONIX TAB 40 MG PO SCH (08:30)
[2021-10-27] MEDS: FOLIC ACID TAB 1 MG PO SCH (08:30)
[2021-10-27] MEDS: SOLU-Medrol 40 MG VIAL IVP SCH ×2 (08:31→21:25)
[2021-10-27] MEDS: LEVAQUIN PREMIX IV 750 MG 750 MG/150 ML BAG IV SCH (08:32)
--- NOTE | 2021-10-27 09:37 | RAD ---
HISTORYPneumoniaSTUDYAP chestCOMPARISONDecember 2020FINDINGSProgression of airspace disease throughout the left lung with slight additional increase in the right lower lobe as well. Heart size similar. Relatively clear right upper lobe.IMPRESSIONInterval increase in pneumonia, especially severe left lung.Electronically signed by: BARBARA TRAORE (Oct 27, 2021 09:31:39)
--- NOTE | 2021-10-27 09:46 | PCM.DCPLAN ---
DISCHARGE SUMMARY Admission Date Date of Admission: 10/25/21 Discharge Date Discharge Date: 10/28/21 Admission Diagnoses (1) Leukopenia: Status: Acute (2) Pneumonia: Status: Acute (3) Thrombocytopenia: Status: Acute (4) Bleeding: Status: Acute (5) Excoriation of groin: Status: Acute (6) DM2 (diabetes mellitus, type 2): Status: Acute (7) HTN (hypertension): Status: Acute (8) Hypothyroidism: Status: Acute (9) Dyslipidemia: Status: Acute (10) Macrocytic anemia: Status: Acute (11) Neutropenia: Status: Acute (12) Tasia rash of groin: Status: Acute (13) Hypoxia: Status: Acute Discharge Diagnoses Discharge Diagnosis: 1. Severe Leukopenia 2. Thrombocytopenia 3. CAP 4. Macrocyticanemia 5. Hx of Gout 6. Hypothyroidism 7. DM2 8. HTN 9. Excoriation of groin bilaterally with some bleeding 10. Hyponatremia- mild 11. Neutropenia 12. Inguinal Candidiasis 13. Hypoxia Discharge Medications Discharge Medications: Home Medication List allopurinol 300 mg PO DAILY 10/25/21 [History] amlodipine 10 mg PO DAILY 10/25/21 [History] fenofibrate 160 mg PO DAILY 10/25/21 [History] folic acid 1 mg PO DAILY 10/25/21 [History] levothyroxine 100 mcg PO DAILY 10/25/21 [History] metformin 850 mg PO BID 10/25/21 [History] pantoprazole 40 mg PO DAILY 10/25/21 [History] spironolactone 25 mg PO BID 10/25/21 [History] Prescriptions: Hospital Course Vital Signs: Temperature 99.0 F Pulse Rate [Right Brachial] 128 Pulse Rate 125 Respiratory Rate 26 Blood Pressure [Right Arm] 109/64 Blood Pressure [Left Arm] 117/59 Blood Pressure 127/60 O2 Sat by Pulse Oximetry 96 Latest Lab Results: Laboratory Last Values WBC 0.5 X10^3/uL (3.6-10.0) L* 10/27/21 04:00 RBC 2.04 X10^6/uL (4.7-6.0) L 10/27/21 04:00 Hgb 7.6 g/dL (13.5-18.0) L 10/27/21 04:00 Hct 22.0 % (42.0-54.0) L 10/27/21 04:00 MCV 107.7 fL (80.0-100.0) H 10/27/21 04:00 MCH 37.1 pg (27.0-34.0) H 10/27/21 04:00 MCHC 34.4 g/dL (33.0-35.0) 10/27/21 04:00 RDW 17.3 % (11.6-16.5) H 10/27/21 04:00 Plt Count 52 X10^3/uL (150.0-450.0) L 10/27/21 04:00 Plt Count Comment Decreased (ADEQUATE) 10/27/21 04:00 MPV 8.4 fL (7.4-11.0) 10/27/21 04:00 Neut % (Auto) 74.2 % (42.0-75.0) 10/27/21 04:00 Lymph % (Auto) 24.4 % (21.0-51.0) 10/27/21 04:00 [place] % (Auto) 0.6 % (0.0-13.0) 10/27/21 04:00 Eos % (Auto) 0.4 % (0.9-2.9) L 10/27/21 04:00 Baso % (Auto) 0.4 % (0.2-1.0) 10/27/21 04:00 Neut # (Auto) 0.4 x10^3/uL (2.2-4.8) L 10/27/21 04:00 Lymph # (Auto) 0.1 X10^3/uL (1.3-2.9) L 10/27/21 04:00 [place] # (Auto) 0 x10^3/uL (0.3-0.8) L 10/27/21 04:00 Eos # (Auto) 0.0 x10^3/uL (0.0-0.2) 10/27/21 04:00 Baso # (Auto) 0.0 X10^3/uL (0.0-0.1) 10/27/21 04:00 Absolute Nucleated RBC 1.3 /100WBC 10/27/21 04:00 Total Counted 10 10/27/21 04:00 Neutrophils % (Manual) 70 % (39-76) 10/27/21 04:00 Lymphocytes % (Manual) 30 % (13-43) 10/27/21 04:00 Monocytes % (Manual) 0 % (4-9) L 10/25/21 19:33 Eosinophils % (Manual) 20 % (0-6) H 10/26/21 21:20 Metamyelocytes % 2 10/26/21 06:13 Nucleated RBCs 1 10/27/21 04:00 Plt Morphology Comment Normal (NORMAL) 10/27/21 04:00 RBC Morphology Abnormal (NORMAL) 10/27/21 04:00 Anisocytosis Slight A 10/27/21 04:00 Macrocytosis 1+ A 10/27/21 04:00 Target Cells Few 10/27/21 04:00 PT 13.9 SECONDS (11.8-14.3) 10/26/21 06:13 INR Target Range - 10/26/21 06:13 INR 1.12 (0.8-1.3) 10/26/21 06:13 APTT 36.7 SECONDS (22.9-36.5) H 10/26/21 06:13 PTT Comment - 10/26/21 06:13 Sodium 133 mmol/L (136-145) L 10/27/21 04:00 Corrected Sodium 134 mmol/L (136-145) L 10/27/21 04:00 Potassium 4.1 mmol/L (3.5-5.1) 10/27/21 04:00 Chloride 101 mmol/L (98-107) 10/27/21 04:00 Carbon Dioxide 22.6 mmol/L (21-32) 10/27/21 04:00 BUN 26 mg/dL (7-18) H 10/27/21 04:00 Creatinine 0.88 mg/dL (0.70-1.30) 10/27/21 04:00 Est GFR (MDRD) Af Amer > 60 (>60) 10/27/21 04:00 Est GFR (MDRD) Non-Af > 60 (>60) 10/27/21 04:00 Glucose 136 mg/dL (65-99) H 10/27/21 04:00 POC Glucose (mg/dL) 122 mg/dL (65-99) H 10/26/21 19:48 Calcium 7.6 mg/dL (8.5-10.1) L 10/27/21 04:00 Corrected Calcium 9.0 mg/dL (8.5-10.1) 10/27/21 04:00 Magnesium 2.0 mg/dL (1.7-2.9) 10/26/21 06:13 Iron 145 ug/dL (50-175) 10/26/21 19:08 Transferrin 207 mg/dL (202-364) 10/26/21 19:08 Ferritin 4092 ng/mL (26-388) H 10/26/21 19:08 Total Bilirubin 0.80 mg/dL (0.2-1.0) 10/27/21 04:00 AST 90 Units/L (15-37) H 10/27/21 04:00 ALT 28 Units/L (12-78) 10/27/21 04:00 Alkaline Phosphatase 31 Units/L (46-116) L 10/27/21 04:00 Creatine Kinase 127 Units/L (39-308) 10/25/21 16:05 CK-MB (CK-2) 1.0 ng/mL (0-4.0) 10/25/21 16:05 CK/CKMB % Calc 0.8 % (<4) 10/25/21 16:05 Troponin I < 0.02 ng/mL (0-1.5) 10/25/21 16:05 B-Natriuretic Peptide 155 pg/mL (0-79) H 10/27/21 04:00 Total Protein 5.7 g/dL (6.4-8.2) L 10/27/21 04:00 Albumin 2.2 g/dL (3.4-5.0) L 10/27/21 04:00 Globulin 3.5 g/dL (2.5-4.5) 10/27/21 04:00 Albumin/Globulin Ratio 0.6 Ratio (1.1-2.1) L 10/27/21 04:00 Vitamin B12 374 pg/mL (193-986) 10/26/21 19:08 Folate 5.4 ng/mL (>8.6) L 10/26/21 19:08 Specimen Type Catherized urine 10/27/21 00:50 Urine Color Dark yellow (YELLOW) 10/27/21 00:50 Urine Appearance Clear (CLEAR) 10/27/21 00:50 Urine pH 6.5 (5.0 - 8.0) 10/27/21 00:50 Ur Specific [place] 1.015 (1.000-1.030) 10/27/21 00:50 Urine Protein 2+ (NEGATIVE) 10/27/21 00:50 Urine Glucose (UA) Negative (NEGATIVE) 10/27/21 00:50 Urine Ketones Negative (NEGATIVE) 10/27/21 00:50 Urine Occult Blood 2+ (NEGATIVE) 10/27/21 00:50 Urine Nitrite Negative (NEGATIVE) 10/27/21 00:50 Urine Bilirubin Negative (NEGATIVE) 10/27/21 00:50 Urine Urobilinogen 1+ (NORMAL) 10/27/21 00:50 Ur Leukocyte Esterase Negative (NEGATIVE) 10/27/21 00:50 Urine RBC 3-5 /HPF (0-3) A 10/27/21 00:50 Urine WBC 0-2 /HPF (0-5) 10/27/21 00:50 Ur Squamous Epith Cells Few /HPF (NEGATIVE) 10/27/21 00:50 Ur Renal Epithelial Cell Rare /HPF (NEGATIVE) 10/27/21 00:50 Urine Bacteria Trace /HPF (NEGATIVE) 10/27/21 00:50 Hyaline Casts Few /LPF (NEGATIVE) 10/25/21 16:19 Urine Mucus Many /HPF (NEGATIVE) 10/25/21 16:19 Ur Culture Indicated? No/not indicated 10/27/21 00:50 SARS CoV-2 RNA Rapid KELSY Negative (NEGATIVE) 10/25/21 16:32 Blood Type A POSITIVE 10/25/21 16:05 Antibody Screen Negative 10/25/21 16:05 Hospital Course: While the patient was in the ED he was given platelet transfusions for his profoundly low platelet count which brought them up to 41. The following morning his platelet count had dropped to 35. A CBC was rechecked at around 2100 last night and the Platelet count had dropped too 27. He was given 2 more packs of platelets last night and this morning his platelet count had come up to 52 this am. It is also noted he has Community Acquired Pneumonia on ED admission in which he was started on Levaquin 750mg daily. Yesterday he developed increased wheezing and at that time IV Solumedrol was ordered and I added Cefepime because of his profoundly low Leukopenia. In the ED his WBC count was 3.2 which has been dropping since admission. Last night at 2130 I was called and his WBC count had dropped to 0.8. Neutrophil count at that time was 0.4. Also noted his Hb on admission was 9.8 and this morning it is 7.6. 2 Units of PRBC's were ordered for this am. He has also become tachycardia with a HR of 118-128 since admission. I suspect this is from his anemia. I am increasing his Cefepime to 2 grams IV Q8H this am for Neutropenia. I am also putting him on Contact precautions for his neutropenia as well. This morning I spoke to Type Cutter/Oncologist Dr. Mayo at [facility] in [place], [place] for transfer. He has accepted the patient and we will be transferring him there later today. Patient is a Full Code at this time. This is an update to yesterday's Discharge summer. Unable to transfer patient yesterday because of no beds available at [facility]. They did call this morning with a bed. No major changes since yesterday. The patient did receive 2 Units of PRBC's. Hb this morning is 9.2, WBC count has dropped to 0.3 and platelet count has dropped again to 31. CXR yesterday showed an increase in the size of his pneumonia. Currently on IV Levaquin 750mg and Cefepime 2 grams IV Q8H. Sputum gram stain showed few GNR, Moderate GPC and Sputum culture showed GNR's. Inguinal region wounds bilaterally grew out GPC and GPR's. Few WBC's were seen from wound cultures. BC x 1 was negative and the other BC grew out Coagulase negative Staph indicating contamination from 10/25/21. The patient is alert and awake this am. He speaks and acts at his normal baseline and reports he feels much better today than a few days ago. He is being transferred in stable condition. Instructions Forms: Precautions for COVID19 [facility] Social Distancing
[2021-10-27] MEDS ORDERED: NS 500 ML IV 500 ML IV PRN (12:14)
[2021-10-27] MEDS: XOPENEX 1.25 MG/3 ML NEBULE NEB SCH ×2 (13:00→16:52)
[2021-10-27] MEDS ORDERED: XOPENEX 1.25 MG/3 ML NEBULE NEB ONE (13:18)
[2021-10-27] MEDS ORDERED: LASIX IVP ONE (15:29)
[2021-10-27] MEDS: NS IV SCH ×2 (16:49→21:25)
[2021-10-27] MEDS: MAXIPIME IV SCH ×2 (16:49→21:25)
[2021-10-27] MEDS: SPIKE MINIBAG IV SCH ×2 (16:49→21:25)
[2021-10-27 17:31] LABS: HEMATOCRIT 24.3 % (42.0-54.0); HEMOGLOBIN 8.6 g/dL (13.5-18.0)
[2021-10-27] MEDS ORDERED: NS 100 ML IV 100 ML ONE (22:14)
[2021-10-28] MEDS: XOPENEX 1.25 MG/3 ML NEBULE NEB SCH ×2 (00:20→05:37)
[2021-10-28 05:12] LABS: BASOPHILS % (AUTO) 0.1 % (0.2-1.0); EOSINOPHILS % (AUTO) 2.1 % (0.9-2.9); HEMATOCRIT 25.9 % (42.0-54.0); HEMOGLOBIN 9.2 g/dL (13.5-18.0); LYMPHOCYTES # (AUTO) 0.1 X10^3/uL (1.3-2.9); LYMPHOCYTES % (AUTO) 43.6 % (21.0-51.0); MEAN CORPUSCULAR HEMOGLOBIN 36.1 pg (27.0-34.0); MEAN CORPUSCULAR HGB CONC 35.4 g/dL (33.0-35.0); MEAN PLATELET VOLUME 9.4 fL (7.4-11.0); MONOCYTES # (AUTO) 0 x10^3/uL (0.3-0.8); MONOCYTES % (AUTO) 2.4 % (0.0-13.0); NEUTROPHILS # (AUTO) 0.1 x10^3/uL (2.2-4.8); NEUTROPHILS % (AUTO) 51.8 % (42.0-75.0); PLATELET COUNT 31 X10^3/uL (150.0-450.0); RED BLOOD COUNT 2.54 X10^6/uL (4.7-6.0); RED CELL DISTRIBUTION WIDTH 20.3 % (11.6-16.5)
[2021-10-28 05:21] LABS: WHITE BLOOD COUNT 0.3 X10^3/uL (3.6-10.0)
[2021-10-28 05:26] LABS: ALANINE AMINOTRANSFERASE 27 Units/L (12-78); ALBUMIN 2.2 g/dL (3.4-5.0); ALKALINE PHOSPHATASE 28 Units/L (46-116); ASPARTATE AMINO TRANSFERASE 88 Units/L (15-37); BLOOD UREA NITROGEN 28 mg/dL (7-18); CALCIUM 7.9 mg/dL (8.5-10.1); CARBON DIOXIDE 24.1 mmol/L (21-32); CHLORIDE 104 mmol/L (98-107); COR CA(FOR HYPOALB) 9.3 mg/dL (8.5-10.1); CREATININE 0.96 mg/dL (0.70-1.30); SODIUM 135 mmol/L (136-145); TOTAL PROTEIN 5.8 g/dL (6.4-8.2); eGFR NON BLACK RACES > 60 (>60)
[2021-10-28 05:43] LABS: ANISOCYTOSIS 1+; PLATELET MORPHOLOGY COMMENT NORMAL (NORMAL); TARGET CELLS PRESENT
[2021-10-28] MEDS: NS IV SCH (06:02)
[2021-10-28] MEDS: MAXIPIME IV SCH (06:02)
[2021-10-28] MEDS: SPIKE MINIBAG IV SCH (06:02)
[2021-10-28] MEDS: NS 1,000 ML IV 1,000 ML IV SCH (06:03)
[2021-10-28] MEDS: FOLIC ACID TAB 1 MG PO SCH (08:16)
[2021-10-28] MEDS: LEVAQUIN PREMIX IV 750 MG 750 MG/150 ML BAG IV SCH (08:16)
[2021-10-28] MEDS: SOLU-Medrol 40 MG VIAL IVP SCH (08:17)
[2021-10-28] MEDS: PROTONIX TAB 40 MG PO SCH (08:17)
[2021-10-28] MEDS: VSL#3 PO SCH (08:17)
[2021-10-28] MEDS: SYNTHROID 100 mcg TAB PO SCH (08:17)
[2021-10-28] MEDS: ROBITUSSIN DM PO SCH (08:17)
[2021-10-28 08:36] VITALS: BP 135/64
[2021-10-28] MEDS ORDERED: NYSTATIN POWDER TOP SCH (09:00)
--- NOTE | 2021-10-28 12:04 | PCM.PROG ---
Progress Note Progress Note for Day of Date of Exam: 10/27/21 Subjective Subjective: This is an addendum to yesterday's discharge summary. Unable to transfer patient to [facility] as they did not have a bed become available. He will be given 2 Units of PRBC's today for his worsening anemia. Will transfer when bed becomes available. Patient needs emergent Heme/Onc consult regarding Anemia, Leukopenia, Neutropenia and Thrombocytopenia. Past Medical Family Social History Past Med/Fam/Surg Hx: No changes since H&P Allergies: Allergies No Known Drug Allergies Allergy (Verified 10/25/21 17:49) Review of Systems ROS: No change since H&P Vital Signs and I&O's Vital Signs: Temperature 97.3 F Pulse Rate [Right Brachial] 128 Pulse Rate 114 Respiratory Rate 34 Blood Pressure [Right Arm] 135/64 Blood Pressure [Left Arm] 117/59 Blood Pressure 127/60 O2 Sat by Pulse Oximetry 94 Intake and Output: Intake & Output 10/25/21 10/26/21 10/27/21 10/28/21 11:59 11:59 11:59 11:59 Intake Total 1116 / 1116 2379 / 2379 2649 / 2649 Output Total 451 / 451 625 / 625 1974 / 1974 Balance 665 / 665 1754 / 1754 674 / 674 Physical Exam Oriented: Normal Eyes: Normal Ear: Normal Nose: Normal Throat: Normal Respiratory: Left and Rhonchi Cardiovascular: Normal : Normal Auscultation: Bowel Sounds: Normal Tenderness: Normal Skin: Rash Musculoskeletal: Normal Psychiatric: Normal Mood Description: Calm Affect: Normal Speech Pattern: Clear Laboratory and Diagnostics Result Diagrams: 10/28/21 04:40 10/28/21 04:40 Labs: 10/25/21 16:19 Groin Wound Gram Stain - Final 10/25/21 16:19 Groin Wound Culture - Preliminary 10/25/21 22:55 Sputum - Expectorated Sputum Sputum Culture - Preliminary 10/25/21 22:55 Sputum - Expectorated Sputum - Final 10/25/21 16:41 Blood Blood Culture - Final 10/25/21 16:35 Blood Blood Culture - Preliminary Laboratory WBC 0.3 X10^3/uL (3.6-10.0) L* 10/28/21 04:40 RBC 2.54 X10^6/uL (4.7-6.0) L 10/28/21 04:40 Hgb 9.2 g/dL (13.5-18.0) L 10/28/21 04:40 Hct 25.9 % (42.0-54.0) L 10/28/21 04:40 MCV 102.0 fL (80.0-100.0) H 10/28/21 04:40 MCH 36.1 pg (27.0-34.0) H 10/28/21 04:40 MCHC 35.4 g/dL (33.0-35.0) H 10/28/21 04:40 RDW 20.3 % (11.6-16.5) H 10/28/21 04:40 Plt Count 31 X10^3/uL (150.0-450.0) L 10/28/21 04:40 Plt Count Comment Decreased (ADEQUATE) 10/28/21 04:40 MPV 9.4 fL (7.4-11.0) 10/28/21 04:40 Neut % (Auto) 51.8 % (42.0-75.0) 10/28/21 04:40 Lymph % (Auto) 43.6 % (21.0-51.0) 10/28/21 04:40 [place] % (Auto) 2.4 % (0.0-13.0) 10/28/21 04:40 Eos % (Auto) 2.1 % (0.9-2.9) 10/28/21 04:40 Baso % (Auto) 0.1 % (0.2-1.0) L 10/28/21 04:40 Neut # (Auto) 0.1 x10^3/uL (2.2-4.8) L 10/28/21 04:40 Lymph # (Auto) 0.1 X10^3/uL (1.3-2.9) L 10/28/21 04:40 [place] # (Auto) 0 x10^3/uL (0.3-0.8) L 10/28/21 04:40 Eos # (Auto) 0.0 x10^3/uL (0.0-0.2) 10/28/21 04:40 Baso # (Auto) 0.0 X10^3/uL (0.0-0.1) 10/28/21 04:40 Absolute Nucleated RBC 8.1 /100WBC 10/28/21 04:40 Total Counted 10 10/27/21 04:00 Neutrophils % (Manual) 70 % (39-76) 10/27/21 04:00 Lymphocytes % (Manual) 30 % (13-43) 10/27/21 04:00 Monocytes % (Manual) 0 % (4-9) L 10/25/21 19:33 Eosinophils % (Manual) 20 % (0-6) H 10/26/21 21:20 Metamyelocytes % 2 10/26/21 06:13 Nucleated RBCs 1 10/27/21 04:00 Plt Morphology Comment Normal (NORMAL) 10/28/21 04:40 RBC Morphology Abnormal (NORMAL) 10/28/21 04:40 Anisocytosis 1+ A 10/28/21 04:40 Macrocytosis Slight A 10/28/21 04:40 Target Cells Present 10/28/21 04:40 PT 13.9 SECONDS (11.8-14.3) 10/26/21 06:13 INR Target Range - 10/26/21 06:13 INR 1.12 (0.8-1.3) 10/26/21 06:13 APTT 36.7 SECONDS (22.9-36.5) H 10/26/21 06:13 PTT Comment - 10/26/21 06:13 Sodium 135 mmol/L (136-145) L 10/28/21 04:40 Corrected Sodium TNP 10/28/21 04:40 Potassium 3.8 mmol/L (3.5-5.1) 10/28/21 04:40 Chloride 104 mmol/L (98-107) 10/28/21 04:40 Carbon Dioxide 24.1 mmol/L (21-32) 10/28/21 04:40 BUN 28 mg/dL (7-18) H 10/28/21 04:40 Creatinine 0.96 mg/dL (0.70-1.30) 10/28/21 04:40 Est GFR (MDRD) Af Amer > 60 (>60) 10/28/21 04:40 Est GFR (MDRD) Non-Af > 60 (>60) 10/28/21 04:40 Glucose 104 mg/dL (65-99) H 10/28/21 04:40 POC Glucose (mg/dL) 133 mg/dL (65-99) H 10/27/21 20:07 Calcium 7.9 mg/dL (8.5-10.1) L 10/28/21 04:40 Corrected Calcium 9.3 mg/dL (8.5-10.1) 10/28/21 04:40 Magnesium 2.0 mg/dL (1.7-2.9) 10/26/21 06:13 Iron 145 ug/dL (50-175) 10/26/21 19:08 Transferrin 207 mg/dL (202-364) 10/26/21 19:08 Ferritin 4092 ng/mL (26-388) H 10/26/21 19:08 Total Bilirubin 1.00 mg/dL (0.2-1.0) 10/28/21 04:40 AST 88 Units/L (15-37) H 10/28/21 04:40 ALT 27 Units/L (12-78) 10/28/21 04:40 Alkaline Phosphatase 28 Units/L (46-116) L 10/28/21 04:40 Creatine Kinase 127 Units/L (39-308) 10/25/21 16:05 CK-MB (CK-2) 1.0 ng/mL (0-4.0) 10/25/21 16:05 CK/CKMB % Calc 0.8 % (<4) 10/25/21 16:05 Troponin I < 0.02 ng/mL (0-1.5) 10/25/21 16:05 B-Natriuretic Peptide 155 pg/mL (0-79) H 10/27/21 04:00 Total Protein 5.8 g/dL (6.4-8.2) L 10/28/21 04:40 Albumin 2.2 g/dL (3.4-5.0) L 10/28/21 04:40 Globulin 3.6 g/dL (2.5-4.5) 10/28/21 04:40 Albumin/Globulin Ratio 0.6 Ratio (1.1-2.1) L 10/28/21 04:40 Vitamin B12 374 pg/mL (193-986) 10/26/21 19:08 Folate 5.4 ng/mL (>8.6) L 10/26/21 19:08 Specimen Type Catherized urine 10/27/21 00:50 Urine Color Dark yellow (YELLOW) 10/27/21 00:50 Urine Appearance Clear (CLEAR) 10/27/21 00:50 Urine pH 6.5 (5.0 - 8.0) 10/27/21 00:50 Ur Specific [place] 1.015 (1.000-1.030) 10/27/21 00:50 Urine Protein 2+ (NEGATIVE) 10/27/21 00:50 Urine Glucose (UA) Negative (NEGATIVE) 10/27/21 00:50 Urine Ketones Negative (NEGATIVE) 10/27/21 00:50 Urine Occult Blood 2+ (NEGATIVE) 10/27/21 00:50 Urine Nitrite Negative (NEGATIVE) 10/27/21 00:50 Urine Bilirubin Negative (NEGATIVE) 10/27/21 00:50 Urine Urobilinogen 1+ (NORMAL) 10/27/21 00:50 Ur Leukocyte Esterase Negative (NEGATIVE) 10/27/21 00:50 Urine RBC 3-5 /HPF (0-3) A 10/27/21 00:50 Urine WBC 0-2 /HPF (0-5) 10/27/21 00:50 Ur Squamous Epith Cells Few /HPF (NEGATIVE) 10/27/21 00:50 Ur Renal Epithelial Cell Rare /HPF (NEGATIVE) 10/27/21 00:50 Urine Bacteria Trace /HPF (NEGATIVE) 10/27/21 00:50 Hyaline Casts Few /LPF (NEGATIVE) 10/25/21 16:19 Urine Mucus Many /HPF (NEGATIVE) 10/25/21 16:19 Ur Culture Indicated? No/not indicated 10/27/21 00:50 SARS CoV-2 RNA Rapid KELSY Negative (NEGATIVE) 10/25/21 16:32 Blood Type A POSITIVE 10/25/21 16:05 Antibody Screen Negative 10/25/21 16:05 Crossmatch See Detail 10/25/21 16:05 Radiology Reviewed: Yes Plan (1) Anemia: Status: Acute Plan: Transfer 2 units of PRBC's today. Premedicate with Tylenol and Benadryl. Will Give Lasix 20mg IV between 1st and 2nd dose. (2) Leukopenia: Status: Acute (3) Pneumonia: Status: Acute Plan: Pneumonia protocol. (4) Thrombocytopenia: Status: Acute Plan: Transfuse platelets as needed. (5) Bleeding: Status: Acute Plan: Monitor platelet levels. (6) Excoriation of groin: Status: Acute Plan: F/U with wound cultures. IV abx. (7) DM2 (diabetes mellitus, type 2): Status: Acute Plan: Cover with Sliding scale. (8) HTN (hypertension): Status: Acute Plan: Resume home BP meds when needed. (9) Hypothyroidism: Status: Acute Plan: Resume Levothyroxine 100mcg daily. (10) Dyslipidemia: Status: Acute (11) Macrocytic anemia: Status: Acute Plan: F/U with anemia profile. (12) Neutropenia: Status: Acute (13) Tasia rash of groin: Status: Acute (14) Hypoxia: Status: Acute
== END 2021-10-28 10:40 | disposition short-term general hospital (02) ==
LOC: ER 15:05 → MED/SURG 15:05
PROVIDERS: ADMIT Family Medicine; ATTEND Family Medicine
DX: R79.89 Other specified abnormal findings of blood chemistry; R58 Hemorrhage, not elsewhere classified; E03.8 Other specified hypothyroidism; S30.811A Abrasion of abdominal wall, initial encounter; Z20.822 Contact with and (suspected) exposure to COVID-19; R79.1 Abnormal coagulation profile; D64.89 Other specified anemias; J15.8 Pneumonia due to other specified bacteria; I10 Essential (primary) hypertension; B95.7 Other staphylococcus as the cause of diseases classified elsewhere; E87.0 Hyperosmolality and hypernatremia; B96.89 Other specified bacterial agents as the cause of diseases classified elsewhere; E78.2 Mixed hyperlipidemia; D69.6 Thrombocytopenia, unspecified; R79.82 Elevated C-reactive protein (CRP)